=== PATIENT | male | born 1965 | race Caucasian/White ===

== ENCOUNTER 2016-12-29 11:12 | Observation (INO) | payer OTHER, BC ==
[2016-12-13 14:55] VITALS: BMI 29.0
--- NOTE | 2016-12-13 15:24 | PAT Medication Instructions ---
Service Date Dec 13, 2016. Current Home Medication List Amlodipine Besylate-Olmesartan (Fatuma), 1 TAB PO for AM Atorvastatin (Lipitor), 20 MG PO QPM Cetirizine-Pseudoephedrine (Allergy D-12), 1 TAB PO PRN Doxazosin Mesylate (Cardura), 4 MG PO QPM Fenofibrate (Tricor ), 145 MG PO QPM Fish Oil (Maxton-3), 1,000 MG PO BID Medication Instructions For Your Scheduled Surgery - Hold the following medications 2 weeks prior to surgery: Fish Oil (Maxton-3), 1,000 MG PO BID - Hold the following medications the morning of surgery: Cetirizine-Pseudoephedrine (Allergy D-12), 1 TAB PO PRN Amlodipine Besylate-Olmesartan (Fatuma), 1 TAB PO for AM - Hold the following medications as scheduled the night before surgery: Fenofibrate (Tricor ), 145 MG PO QPM - Take the following medications as scheduled the night before surgery: Doxazosin Mesylate (Cardura), 4 MG PO QPM Cetirizine-Pseudoephedrine (Allergy D-12), 1 TAB PO PRN Atorvastatin (Lipitor), 20 MG PO QPM If you have any questions please call us at [phone] (Mony Long PA-C) or [phone] or [phone]
--- NOTE | 2016-12-13 15:52 | DIAGNOSTIC IMAGING REPORT ---
CHEST 2 VIEWS ROUTINE CLINICAL HISTORY: PAT preoperative evaluation COMPARISON STUDY: No previous studies for comparison. FINDINGS: The bones soft tissues and hemidiaphragms are normal. The cardiomediastinal silhouette is normal. The lungs are clear. The pulmonary vasculature is normal. IMPRESSION: Negative chest. Electronically signed by: Davy Martinez M.D. 12/13/2016 3:51 PM Dictated Date/Time: 12/13/2016 3:50 PM
[2016-12-13 15:58] LABS: BASO % 0.4 %; BASO ABS # 0.04 K/uL (0-0.2); COMPLETE YES; EOS % 2.2 %; IG% 0.3 %; LYMPH % 17.9 %; MEAN CELL VOLUME 93.4 fL (80-100); MEAN CORPUSCULAR HEMOGLOBIN 32.3 pg (25-34); MEAN CORPUSCULAR HGB CONC 34.5 g/dl (32-36); MEAN PLATELET VOLUME 10.1 fL (7.4-10.4); MONO % 14.2 %; PLATELET COUNT 191 K/uL (130-400); RED BLOOD COUNT 4.71 M/uL (4.7-6.1); WHITE BLOOD COUNT 8.96 K/uL (4.8-10.8)
[2016-12-13 16:03] LABS: MANUAL MICROSCOPIC REQUIRED? NO; REVIEW REQ? NO; URINE APPEARANCE CLEAR (CLEAR); URINE BILIRUBIN NEG (NEG); URINE COLOR DK YELLOW; URINE NITRITE NEG (NEG); URINE SPECIFIC GRAVITY 1.023 (1.000-1.030); UROBILINOGEN NEG (NEG)
[2016-12-13 16:07] LABS: INR 1.1 (0.9-1.1); PROTHROMBIN TIME (PATIENT) 11.5 SECONDS (9.0-12.0)
[2016-12-13 16:08] LABS: BUN/CREATININE RATIO 10.2 (10-20); CALCIUM 9.3 mg/dl (8.5-10.1); CREATININE 1.2 mg/dl (0.60-1.40); POTASSIUM 3.6 mmol/L (3.5-5.1)
--- NOTE | 2016-12-28 12:23 | HISTORY & PHYSICAL EXAMINATION ---
DATE OF ADMISSION: 12/29/2016 INDICATIONS: He is for a surgery tomorrow at [facility] for removal of anterior plate C6-C7 and an anterior cervical discectomy at C6-C7 with iliac crest bone graft for a nonunion C6-C7 cervical spine. We will also be doing iliac crest bone graft. HISTORY OF PRESENT ILLNESS: Fred is a delightful gentleman. He has had a 1 year duration of neck and upper extremity difficulty, paresthesias, weakness, pain, headaches as well. I worked him up extensively. I have determined him to have a nonunion of the cervical spine prior fusion and we are scheduled for a revision. PAST MEDICAL HISTORY: Negative for acid reflux, hiatal hernia. No kidney, liver disease. No carcinoma. No difficulty with anesthesia. No angina. Does have hypertension, high cholesterol, sleep apnea, numbness and tingling. PAST SURGICAL HISTORY: Include knee surgery x2, neck fusion, carpal tunnel. ALLERGIES: GABAPENTIN. MEDICATIONS: Fatuma, Tricor, Lipitor, Cardara and fish oil. 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 No illegal drugs. One alcoholic beverage 6 per week. Mild cigarette smoking. REVIEW OF SYSTEMS: Denies any blurred vision, double vision. He does have headaches, no tinnitus, no vertigo. Denies chest pain, angina. Denies nausea, vomiting, urgency, frequency. Denies asthma, wheezing, shortness of breath. Admits to neck and upper extremity difficulty and trapezius pain and numbness and tingling to his extremities. OBJECTIVE: GENERAL: He is alert, oriented, pleasant gentleman. VITAL SIGNS: Blood pressure was stable 130/80 in preop, respirations 16, pulse regular at 80 beats per minute. CARDIAC: Normal S1, S2, no S3. LUNGS: Clear to auscultation. No rales, rhonchi, or wheezing. ABDOMEN: Soft, nontender, no referred pain. SKIN INTEGUMENTARY: Intact. No adenopathy, no breakdown, no zoster rashes. 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 He has numbness and tingling. He has Wilfredo maneuver, Lhermitte sign with rotation and side bending, extension giving him a shock wave type response. IMAGES: Reviewed. He has prior anterior cervical plate fixation and a nonunion at C6-C7 cervical. IMPRESSION: Cervical nonunion. DISPOSITION: Includes an ACDF revision, removal of the anterior plate, ACDF and fusion at C6-C7 of the cervical spine.
[2016-12-29] VITALS (12 sets, daily range): BP systolic 113–137; BP diastolic 71–90; PULSE 60–85; TEMP 36.8–37.3; O2SAT 37–96; Ht 172.7 cm; Wt 86.0 kg
[~2016-12-29] VITALS: Ht 172.7 cm; Wt 86.0 kg
[~2016-12-29 11:12] MED LIST: AMLO10TA PO; ATOR-22 PO; CEFAZOLIN 2000 MG/60 ML D5W 60 ML IV SCH; CETITAB PO; DOXA4TAB2 PO; FENO145T26 PO; LACTATED RINGER'S 1000ML IV SCH; NSS 1000ML IV SCH; OMEG10007 PO
[2016-12-29] MEDS ORDERED: MIDAZOLAM HCL 1 MG/ML 2ML VIAL ONE (11:16)
[2016-12-29] MEDS ORDERED: FENTANYL CITRATE INJ 50 MCG/1 ML 2 ML VIAL ONE (11:16)
[2016-12-29] MEDS ORDERED: HYDROmorphone INJ 2 MG/ML SYR/VIAL ONE (11:16)
[2016-12-29] MEDS ORDERED: SCOPOLAMINE 1.5 MG TDSY TD ONE (12:40)
[2016-12-29] MEDS ORDERED: GELATIN SPONGE SZ 100 ONE (12:46)
[2016-12-29] MEDS ORDERED: THROMBIN FOR SOLN 20000 UNIT KIT ONE (12:46)
[2016-12-29] MEDS ORDERED: BACITRACIN 50000 UNIT VIAL ONE (12:47)
[2016-12-29] MEDS ORDERED: BUPIVACAINE/EPINEPHRINE 0.5% MPF 1:200,000 30 ML VIAL ONE (12:47)
--- NOTE | 2016-12-29 13:09 | History & Physical Bridge Note ---
H&P Re-Evaluation Bridge Note: I have examined the patient, reviewed the History & Physical and in the interval since the performance of the History & Physical I have noted the following changes of clinical significance: No changes noted
[2016-12-29] MEDS ORDERED: LABETALOL HCL IV 5 MG/ML 20ML IV PRN (13:45)
[2016-12-29] MEDS ORDERED: ONDANSETRON INJ 2 MG/ML 2 ML VIAL IV PRN ×2 (13:45→15:15)
[2016-12-29] MEDS ORDERED: CHECK SCOPOLAMINE PATCH PLACEMENT ONE (13:45)
[2016-12-29] MEDS ORDERED: ATROPINE SULFATE 0.1 MG/ML 5ML SYR IV PRN (13:45)
[2016-12-29] MEDS ORDERED: HYDROmorphone INJ 2 MG/ML SYR/VIAL IV PRN (13:45)
[2016-12-29] MEDS ORDERED: PROMETHAZINE HCL INJ 12.5 MG in SODIUM CHLORIDE 0.9% 50ML 50 ML IV PRN (13:45)
[2016-12-29] MEDS ORDERED: METOCLOPRAMIDE HCL INJ 5 MG/ML 2 ML VIAL ONE (13:52)
[2016-12-29] MEDS ORDERED: DEXAMETHASONE SOD INJ 4 MG/ML VIAL ONE (13:52)
[2016-12-29] MEDS ORDERED: DiphenhydrAMINE HCL 50 MG/ML VIAL ONE (13:52)
[2016-12-29] MEDS ORDERED: ROCURONIUM BROMIDE 10 MG/ML 5 ML VIAL ONE (13:52)
[2016-12-29] MEDS ORDERED: PROPOFOL IV EMULSION 10 MG/ML 20 ML VIAL IV ONE (13:52)
[2016-12-29] MEDS ORDERED: LARYING-O-JET KIT (LTA) EXT ONE ×2 (13:52)
[2016-12-29] MEDS ORDERED: GLYCOPYRROLATE INJ 0.2 MG/ML VIAL ONE (13:52)
[2016-12-29] MEDS ORDERED: NEOSTIGMINE METHYLSULFATE 5 MG/5 ML SYR ONE (13:52)
[2016-12-29] MEDS ORDERED: ONDANSETRON INJ 2 MG/ML 2 ML VIAL ONE (13:52)
[2016-12-29] MEDS ORDERED: LIDOCAINE HCL 2% 2 ML VIAL (20MG/ML) ONE (13:52)
--- NOTE | 2016-12-29 15:07 | [facility] Post Operative Brief Note ---
Immediate Operative Summary Operative Date Dec 29, 2016. Pre-Operative Diagnosis Cervical nonunion Post-Operative Diagnosis Cervical nonunion Procedure(s) Performed Removal Anterior Plate, C6-C7 Cervical Discectomy and Fusion with Iliac Crest Bone Graft Surgeon Dr. Noman Navarro Certified Dialysis Technician Surgeon(s) Ephraim Dowling PA-C Estimated Blood Loss 10mL Findings non union Specimens Specimen A. Explanted Cervical Hardware Complication(s) None Disposition Recovery Room / PACU
[2016-12-29] MEDS ORDERED: HYDROmorphone INJ 0.5 MG/0.5 ML SYR IV PRN (15:15)
[2016-12-29] MEDS ORDERED: MAGNESIUM HYDROXIDE SUSP 30 ML UDC PO PRN (15:15)
[2016-12-29] MEDS ORDERED: ACETAMINOPHEN IV 100 ML IV PRN (15:15)
[2016-12-29] MEDS ORDERED: RACEPINEPHRINE 2.25% NEBU SOLN 0.5 ML VIAL INH PRN (15:15)
[2016-12-29] MEDS ORDERED: NALOXONE HCL 0.4 MG/1 ML VIAL/CARP IV PRN (15:15)
[2016-12-29] MEDS ORDERED: HYDROCODONE/ACETAMOPHEN 5/325MG TAB PO PRN (15:15)
[2016-12-29] MEDS ORDERED: DEXAMETHASONE INJ 8 MG in SYRINGE 0 ML IV PRN (15:15)
[2016-12-29] MEDS ORDERED: LORAZEPAM INJ 0.5 MG in SYRINGE 0.75 ML IV PRN (15:15)
[2016-12-29] MEDS ORDERED: IV FLUIDS COMPLETED PRN (15:30)
--- NOTE | 2016-12-29 15:35 | Anesthesiology Progress Note ---
Anesthesia Post Op Note Date & Time Dec 29, 2016 at 15:34 Vital Signs Pain Intensity: 0 Vital Signs Past 12 Hours Date Time Temp Pulse Resp B/P Pulse Ox O2 Delivery O2 Flow Rate FiO2 12/29/16 15:25 80 10 132/83 98 Mask 10 12/29/16 15:15 82 13 135/82 99 Mask 10 12/29/16 15:05 36.5 89 16 137/79 100 Mask 10 12/29/16 11:43 37 76 20 128/90 37 Room Air Notes Mental Status: alert / awake / arousable, participated in evaluation Pt Amnestic to Procedure: Yes Nausea / Vomiting: adequately controlled Pain: adequately controlled Airway Patency, RR, SpO2: stable & adequate BP & HR: stable & adequate Hydration State: stable & adequate Anesthetic Complications: no major complications apparent
--- NOTE | 2016-12-29 15:42 | DIAGNOSTIC IMAGING REPORT ---
Cervical SPINE, INTRAOPERATIVE FLUOROSCOPY HISTORY: ACDF C6-C7. FLUOROSCOPY TIME: 2 seconds. FINDINGS: Intraoperative fluoroscopy was provided for the cervical spine. A single fluoroscopic spot image was obtained. There is anterior cervical discectomy and fusion within the lower cervical spine. The exact location is difficult to determine on limited imaging. IMPRESSION: Fluoroscopy provided for a lower cervical spine ACDF.. Electronically signed by: Get Lee M.D. 12/29/2016 3:40 PM Dictated Date/Time: 12/29/2016 3:39 PM
--- NOTE | 2016-12-29 15:45 | Discharge Instructions ---
Discharge Instructions Date of Service Dec 29, 2016. Admission Reason for Admission: Nonunion cervical spine fusion Discharge Discharge Diagnosis / Problem: same as above Discharge Goals Goal(s): Improve function Activity Recommendations Activity Limitations: as noted below Lifting Limitations: until after follow-up appointment Exercise/Sports Limitations: until after follow-up appointment May Resume Sexual Activity: after follow-up appointment Shower/Bathe: keep incision dry . Instructions / Follow-Up Instructions / Follow-Up MEDICATIONS: Please take your prescriptions as instructed at your pre-op appointment. SPECIAL CARE: The following information is intended to answer some of the common questions and concerns regarding your surgery. Each patient is an individual and receives individual counselling throughout the course of treatment, from diagnosis to surgery all the way through recovery. What follows is not an exhaustive list, but should be a useful guide to some of the common questions and concerns patients have regarding their surgeries. These are not provided to keep you from calling us; rather, they give you something accurate and concrete to reference as you recover from your procedure. If you need us, we are available to you. As always, if you are not sure about something, call us at [phone]. MEDICAL EMERGENCIES: For these conditions, call 911 or go to your local hospital-based Emergency Department - not [facility] or equivalent. * Paralysis * Severe chest pain or difficulty breathing * Swelling or redness of either leg Spine procedures can be rather complex and though complications are rare, they do occur. In such cases, effective advice regarding emergency situations cannot always be addressed over the telephone. You may be referred to the emergency department for more effective management of your problem. Activity Limitations: It is important to give your body time to heal, so please limit your activities : * In general, don't do anything that moves your spine too much. You should avoid contact sports, twisting or heavy lifting while you recover. * 5-10 pounds is all you should attempt to lift. * You should not plan on driving for approximately 3 weeks and you should avoid traveling more than 30-45 minutes at a time. Longer trips should be broken down with walking breaks spaced appropriately. * Physical therapy is not usually required. * Walking and good posture practices will help you recover and regain your function. * Avoid straining or sudden changes in position. * In general, the goal is to take it easy and recover. Don't cause any new problems. Just relax. Showers: * Do not take a bath, use a Jacuzzi or hot tub or otherwise submerge your incision. * It is usually safe to take a shower 4-5 days after your surgery. * Your incision does not require any special creams or ointments. * Simply clean it with soap and water, dry and re-dress with a clean bandage afterwards. Incision: * Keep incision clean, dry and protected until your first follow-up appointment. * Some amount of drainage and redness is normal. Any drainage should be fairly clear and not have a foul odor. * If you feel anything is wrong or you have excessive drainage, please call us. * Your stitches and alvarez will be removed 10-14 days after your surgery. At the time of your first post-op visit. * Neck surgeries are typically closed with a suture underneath the skin. The steri-strips over the incision should be maintained until we see you in the office. Bracing: * You may be provided with a back or neck brace to encourage good posture and prevent injury. It will remind you not to do too much as you heal and will alert others to the fact that you have had a surgery. * Back braces may be removed for showers and when you are resting at home. They must be worn when you are walking around for any period of time or for travel. * For neck surgery, you will likely be provided with two cervical collars. The soft collar ([place] or foam rubber) is worn most commonly throughout the day and while sleeping. The plastic collar (provided at the hospital) is for showering/bathing. * Except while eating, collars should remain in place. More specifically, bracing is provided for a purpose and should be worn. * Please obtain your brace or collars prior to your operation and bring them to the hospital with you on the day of surgery. * You should also bring your collars to your post-op appointment with Dr. Navarro. You should always take good care of your body and practice healthy habits, especially following surgery. You should: * Follow your doctor's treatment plan * Sit and stand properly with good posture (ears over shoulders, shoulders over hips) Don't slouch * Learn to lift correctly * Exercise regularly (low-impact aerobic exercise is especially good, but check with your doctor first) * Generally, be up and walking for 5-10 minutes at a time at least 3-4 times per day from the day you get home * Increasing walking to tolerance until you can walk for 20-30 minutes at a time * Attain and maintain a healthy body weight * Eat healthy foods ( a well-balanced, low-fat diet rich in fruits and vegetables) and get enough calcium * Avoid excessive use of alcohol When to call our office - If you notice any of the following: * Increased pain not relieve by pain medicine * Fevers greater then 100 degrees F, chills or flu symptoms * Increased redness around incision * Drainage from the incision that is not clear * Any foul smelling drainage * Swelling or fluid collection beneath the skin Miscellaneous: * In the hospital, you may be given a walker or cane for support while walking. These are temporary needs and are intended to prevent injuries due to falls. You may discontinue them when you feel strong and steady enough on your feet. * Sleep in a comfortable position. We find that many patients find a lounge chair or recliner with several pillows to be beneficial in the early post-operative period. * The support stockings should be used for 7-10 days and may be discontinued when you are back to walking more and conducting usual household activities. No problem is insignificant. We are here to help you and get you well. Contact us at [phone]. Definitions: Foraminotomy: If part of the disc or a bone spur (osteophyte) is pressing on a nerve as it leaves the vertebra (through an exit called the foramen), a foraminotomy may be done. Otomy means "to make an opening." A foraminotomy is making the opening of the foramen larger, so the nerve can exit without being compressed. Laminotomy: Similar to the foraminotomy, a laminotomy makes a larger opening, this time in your bony plate protecting your spinal canal and spinal cord (the lamina). The lamina may be pressing on your nerve, so the surgeon may make more room for the nerves using a laminotomy. Laminectomy: Sometimes, a laminotomy is not sufficient. The surgeon may need to remove all or part of the lamina. This procedure is called a laminectomy. This can often be done at many levels without any harmful effects. Current Hospital Diet Patient's current hospital diet: full liquid; Advance as tolerated Discharge Diet Recommended Diet: Full Liquid Diet Procedures Procedures Performed: Removal Anterior Plate, C6-C7 Cervical Discectomy and Fusion with Iliac Crest Bone Graft Pending Studies Studies pending at discharge: no Medical Emergencies . Who to Call and When: Medical Emergencies: If at any time you feel your situation is an emergency, please call 911 immediately. . Non-Emergent Contact Non-Emergency issues call your: Surgeon . "Provider Documentation" section prepared by Noman Navarro. VTE Core Measure Inpt VTE Proph given/why not?: Treatment not indicated
[2016-12-29] MEDS ORDERED: HYDROmorphone INJ 1 MG/ML SYR IV PRN (16:00)
--- NOTE | 2016-12-29 16:52 | OPERATIVE REPORT ---
DATE OF OPERATION: 12/29/2016 PREOPERATIVE DIAGNOSIS: Nonunion cervical spine, C6-C7. POSTOPERATIVE DIAGNOSIS: Same. PROCEDURE: Include an anterior cervical discectomy and fusion with left iliac crest bone graft of the cervical spine C6-C7 preceded by removal of a large anterior plate, cervical spine. SURGEON: Dr. Navarro. MICROBIOLOGY ANALYST: Ephraim Dowling PA-C. COMPLICATIONS: Zero. BLOOD LOSS: 10 mL. ANESTHETIC: General. DESCRIPTION OF PROCEDURE: The patient was taken to the operating room and general intubated and anesthetic provided to the patient, kept supine, prepped and draped sterile. First scrubbed with Betadine. We draped in sterile, made a transverse skin incision midway up the cervical spine dissecting the soft tissue. In the same plane, we came down on the spinal column anterior aspect. We were able to find the anterior plate with relative ease. The screws were all backed out from the anterior plate from a different company, I believe it was [id number] was the implant. We removed the plate at the C6-C7 level of the cervical spine, there was an obvious nonunion where the bone unfortunately had not incorporated. We burred down the spinal cord, decompressed the spinal cord at this level as well. We then went to the iliac crest, skin incision, fascial incision, harvested a nice piece of iliac crest, autograft structural this was placed into the vacated interval of the C6-C7 discectomy site. An anterior plate 18 mm in length, placed over the construct, secured with revision strategies. We irrigated, closed, x-rays were obtained, I was pleased with the reduction and positioning. We closed in layers. Sterile dressings applied. A collar applied. The patient returned to recovery in satisfactory and stable. No intraoperative complications. Blood count 10 mL. Sponge and needle count correct. I attest to the content of the Intraoperative Record and any orders documented therein. Any exceptio ns are noted below.
[2016-12-29] MEDS: SODIUM CHLORIDE 0.9% 1000ML 1,000 ML IV SCH (17:25)
[2016-12-29] MEDS ORDERED: DOXAZosin MESYLATE TAB 4 MG TAB PO SCH (21:00)
[2016-12-29] MEDS ORDERED: FENOFIBRATE 145 MG TAB PO SCH (21:00)
[2016-12-29] MEDS ORDERED: ATORVASTATIN 20 MG TAB PO SCH (21:00)
[2016-12-29] MEDS: DEXAMETHASONE INJ 6 MG in SYRINGE 0 ML IV SCH (21:47)
[2016-12-29] MEDS: DOCUSATE SODIUM 100 MG CAP PO SCH (21:48)
[2016-12-29] MEDS: OMEGA-3 (PURIFIED FISH OIL) 1 GM CAP PO SCH (21:50)
[2016-12-29] MEDS: CEFAZOLIN IV 1,000 MG in DEXTROSE 5% 50ML 50 ML IV SCH (21:52)
[2016-12-30] VITALS (11 sets, daily range): BP systolic 118–150; BP diastolic 52–82; PULSE 52–85; TEMP 36.6–37; O2SAT 90–96
[2016-12-30] MEDS: SODIUM CHLORIDE 0.9% 1000ML 1,000 ML IV SCH (03:13)
[2016-12-30] MEDS: CEFAZOLIN IV 1,000 MG in DEXTROSE 5% 50ML 50 ML IV SCH (05:39)
[2016-12-30] MEDS: DEXAMETHASONE INJ 6 MG in SYRINGE 0 ML IV SCH (05:41)
--- NOTE | 2016-12-30 08:38 | Anesthesiology Progress Note ---
Anesthesia Post Op Note Date & Time Dec 30, 2016 at 08:36 Vital Signs Pain Intensity: 0.0 Vital Signs Past 12 Hours Date Time Temp Pulse Resp B/P Pulse Ox O2 Delivery O2 Flow Rate FiO2 12/30/16 08:05 Room Air 12/30/16 07:18 36.6 52 16 129/82 94 Room Air 12/30/16 05:30 36.8 60 18 118/70 92 Room Air 12/30/16 03:30 36.8 60 133/76 92 Humidified Air 4.0 12/30/16 03:20 56 16 96 Nasal Cannula 3.5 12/30/16 01:30 36.9 60 16 125/76 92 Nasal Cannula 4.0 Humidified Oxygen 12/30/16 01:30 Humidified Oxygen 4.0 12/29/16 23:30 36.9 60 12 124/76 94 Nasal Cannula 4.0 Humidified Oxygen 12/29/16 23:30 94 Nasal Cannula 4.0 Humidified Oxygen 12/29/16 23:24 83 16 95 Nasal Cannula 3.0 12/29/16 21:30 37.1 85 16 117/75 93 Nasal Cannula 4.0 Humidified Oxygen Notes Mental Status: alert / awake / arousable, participated in evaluation Anesthetic Complications: no major complications apparent
[2016-12-30] MEDS: OMEGA-3 (PURIFIED FISH OIL) 1 GM CAP PO SCH (09:19)
[2016-12-30] MEDS: DOCUSATE SODIUM 100 MG CAP PO SCH (09:19)
--- NOTE | 2016-12-30 12:20 | DISCHARGE SUMMARY ---
SUBJECTIVE: Minimal complaints of pain, no shortness of breath or chest pain. OBJECTIVE: Vital signs stable, wound is clean. ASSESSMENT: Status post anterior cervical discectomy and fusion cervical spine revision. DISPOSITION: Will let Fred go home later on this afternoon. Instructions, precautions given in the office and in the hospital on the floor. He has prescriptions at home and his cervical collar. He is to call if problems should arise. All has been finalized.
[2016-12-31] MEDS ORDERED: BISACODYL 10 MG SUPP PR PRN (06:00)
[2016-12-31] MEDS ORDERED: BISACODYL 5 MG TABEC PO PRN (06:00)
== END 2016-12-30 13:47 | disposition home or self-care (01) ==
LOC: ENRESERVDT → ENRESERVTM → C.ACU 11:12 → C.3E 11:37
PROVIDERS: ADMIT Orthopaedic Surgery Orthopaedic Surgery of the Spine; ATTEND Orthopaedic Surgery Orthopaedic Surgery of the Spine
DX: T85.628A Displacement of other specified internal prosthetic devices, implants and grafts, initial encounter (principal); Z79.899 Other long term (current) drug therapy; X58.XXXA Exposure to other specified factors, initial encounter